=== PATIENT | female | born 1960 | race Hispanic/Latino ===

== ENCOUNTER 2022-07-13 12:51 | Outpatient (CLI) | payer OTHER ==
--- NOTE | 2022-07-15 10:03 | Mammography Report ---
DIGITAL SCREENING MAMMOGRAM WITH CAD, 07/13/2022 CLINICAL INFORMATION / INDICATION: Routine screening mammography. TECHNIQUE: Digital bilateral 2D mammography was obtained in the craniocaudal and mediolateral obliqu e projections. This examination was interpreted with the benefit of Computer-Aided Detection analysis . COMPARISON: 02/17/2011, 06/10/2015 FINDINGS: Breast Density: The breasts are almost entirely fatty. No dominant mass, suspicious calcifications, or architectural distortion in the left breast. There is a 5 mm round nodule in the retroareolar left breast, middle depth. This represents a new finding. IMPRESSION: Left breast 5 mm retroareolar nodule. Recommend initial evaluation with left breast ultra sound followed by possible spot compression imaging. Follow up recommendation: Ultrasound BI-RADS Category 0: INCOMPLETE. Needs additional imaging evaluation and/or prior mammograms for stephen stover. A "normal" or negative report should not discourage follow up or biopsy of a clinically significant f inding. A written summary of these findings will be mailed to the patient. The patient will be entered into a mammography reporting system which will generate a reminder letter for the patient's next appointmen t at the appropriate interval. The [employer] recommends yearly mammograms starting at age 40 and continuing as l maverick as a woman is in good health. Breast MRI is recommended for women with an approximate 20-25% or greater lifetime risk of breast cancer, including women with a strong family history of breast or ova maxine cancer or who have been treated for Hodgkin's disease. Signer Name: Maria Isabel Ruvalcaba MD Signed: 07/15/2022 9:58 AM Workstation Name: [id number]
== END 2022-07-13 12:52 | disposition home or self-care (01) ==
LOC: SPVWC 12:51
PROVIDERS: ATTEND Obstetrics & Gynecology
DX: Z12.31 Encounter for screening mammogram for malignant neoplasm of breast (principal)
CPT/HCPCS: 77067